=== PATIENT | female | born 1985 | race Caucasian/White ===

== ENCOUNTER 2021-02-03 07:49 | Outpatient (CLI) | payer BC, SELFPAY ==
--- NOTE | 2021-02-06 13:12 | WPDPFTINT ---
PFT Procedure Performed PFT Procedure Performed Spirometry with Pre/Post Bronchodilator Plethysmography (Lung Vol) Diffusing Cap (DLCO) Flow Vol Loop PFT Interpretation This PFT met all criteria for ATS standards and reproducibility FEV/FVC post bronchodilator 66% FEV1 83% FVC 102% TLC 98% RV 89% RV/TLC 23% DLCO 84 when adjusted for alveolar volume but not adjusted for hemoglobin Flow volume loops were normal Impression: Normal PFT. Clinical correlation is advised.
== END 2021-02-03 07:50 | disposition home or self-care (01) ==
PROVIDERS: PCP Family Medicine; Visit Provider Nurse Practitioner Family
DX: R06.02 Shortness of breath (principal)
CPT/HCPCS: 94060; 94726; 94729

== ENCOUNTER → 2021-02-19 02:59 | Outpatient (CLI) | payer BC, SELFPAY ==
[2021-02-19 18:16] LABS: SARS-CoV-2 RNA PCR Negative
== END ==
PROVIDERS: PCP Family Medicine; Visit Provider Internal Medicine Critical Care Medicine
DX: R68.89 Other general symptoms and signs (principal); Z20.822 Contact with and (suspected) exposure to COVID-19
CPT/HCPCS: C9803; U0003; U0005

== ENCOUNTER 2021-02-22 08:33 | Outpatient (CLI) | payer BC, SELFPAY ==
--- NOTE | 2021-03-17 12:12 | WPDSLEEPSTUD ---
Sleep Study Date of Study: 02/22/21 Ordering Provider: Eren Ordoñez APRN Interpreting Physician: Tonia Parra MD Sleep Study Type: Split Polysomnogram Height: 1.7 m Weight: 111.13 kg Body Mass Index: 38.3 Neck Circumference (inches): 18 Sigel: 21 Reason for Sleep Study Difficulty falling asleep and staying asleep, daytime sleepiness Sleep History Marcos Avelar is a 36 year old man with depression who has difficulty falling asleep and staying asleep. It is difficult for him to wake up in the morning. After couple of hours of being awake he is sleepy again, nodding off, with his head bobbing while he is driving. He has marital issues it started in November of 2019. He had COVID in August and his problems worsened. When he is able to get additional sleepy always does so. He will sleep as late as 10 or 11 and wakes up feeling even more sleepy. He was tested for sleep apnea several years ago. This was at an outside hospital as we do not have any of these records. He has tried multiple medications which have not worked. He frequently awakens from sleep feeling short of breath. He occasionally awakens at night with heartburn, belching or coughing. He frequently snores and is frequently loud enough that others complain since COVID. He frequently has trouble sleep with a cold and frequently wakes up gasping for breath at night. He constantly has breathing problems at night observed by others. He occasionally sweats excessively night. He does not notice his heart pounding or beating irregularly at night. He constantly falls asleep during the day, frequently involuntarily and frequently while driving. He rarely falls asleep while exerting physical effort. He does not have loss of muscle tone was strong emotion. He constantly has daytime difficulties due to excessive sleepiness. He does not feel paralyzed on waking or falling asleep. He frequently has vivid dreamlike scenes upon awakening or falling asleep. He does not feel afraid to go to sleep. He rarely has nightmares. He he constantly remembers his dreams, constantly has racing thoughts and constantly feels sad depressed and anxious. He constantly has muscular tension. He constantly notices parts of his body jerking. He occasionally kicks at night. He frequently has crawling and aching feelings in his legs. He frequently has leg pain at night. He does not have morning jaw pain. He does not grind his teeth during sleep. He occasionally has bothered by pain during the day and occasionally is awakened by pain at night. He frequently wakes up feeling stiff in the morning with sore achy muscles. He constantly wakes up with pain in the neck and spine. He has memory problems, concentration difficulties, headaches and dizziness. He always has morning headaches. Normal bedtime is between 11:00 p.m. and 1:00 a.m.. It takes him between 30 minutes and 90 minutes to fall asleep. He wakes up every 1-2 hours. It takes him a few minutes to return to sleep. He wakes in the morning between 5:30 a.m. and 6:00 a.m. he sleeps in usually on Monday. He does not take naps in the afternoon or evening. A short nap is not refreshing. He is usually drowsy in the morning for 3 hours or longer. Habits: never smoked tobacco. Caffeine 2-4 servings a day. Alcohol 2 servings per week. No recreational drugs. [facility] Past Medical History Medical History (Updated 03/17/21 @ 12:59 by Tonia Parra MD) Adjustment disorder Depression SANTOS (generalized anxiety disorder) Obesity Surgical History Surgical History (Updated 01/08/21 @ 14:22 by Eren Ordoñez APRN) [facility] Social History Social History (Updated 01/08/21 @ 14:22 by Eren Ordoñez APRN) Smoking status: Never smoker Substance use: never Additional occupation/education comments: works at [employer] Home Medications Medication Instructions Recorded Confirmed Type doxycycl
[2021-03-17 13:09] VITALS: BMI 38.3
== END 2021-02-23 06:39 | disposition home or self-care (01) ==
LOC: ANHCSM 08:36
PROVIDERS: PCP Family Medicine; Visit Provider Nurse Practitioner Family
DX: G47.10 Hypersomnia, unspecified (principal); G47.33 Obstructive sleep apnea (adult) (pediatric)
CPT/HCPCS: 95811

== ENCOUNTER 2021-09-14 08:36 | Outpatient (CLI) | payer BC, SELFPAY ==
--- NOTE | 2021-09-15 12:03 | WPDMETH ---
Methacholine Procedure Perform Procedure Performed Methacholine Challenge Methacholine Challenge This is a methacholine challenge test. The test was performed and interpreted in accordance with the 2017 ERS technical standard, endorsed by the ATS, using the GLI 2012 reference equations. Testing was performed with increasing doses of nebulized methacholine following a quadrupling dosage protocol. The methacholine dose was delivered via the [employer] nebulizer using a 1-minutes tidal breathing protocol. The best post-methacholine FEV1 values were used to determine the change from the post diluent FEV1. The delivered dose of methacholine was used to calculate the provocative concentration causing a 20% fall in FEV1 (PC20). Findings: Baseline FEV1 3.41 L, 88% predicted. Post diluent FEV1 3.30 L Post 0.0625 mg/ml methacholine FEV1 3.30 L, decreased 0% Post 0.25 mg/mL methacholine FEV1 3.04 L, decreased 8% Post 1.0 mg/mL methacholine FEV1 2.96 L, decreased 10% Post 4.0 mg/mL methacholine FEV1 2.26 L, decreased 31% Post albuterol nebulization FEV1 3.25 L Impression: The PC20 is 1.89 mg/ml which is categorized as mild airway hyperresponsiveness. There are no prior methacholine challenge studies for comparison
== END 2021-09-14 08:37 | disposition home or self-care (01) ==
PROVIDERS: PCP Family Medicine; Visit Provider Nurse Practitioner Family
DX: R06.02 Shortness of breath (principal)
CPT/HCPCS: 99199; 94070; J7674